=== PATIENT | female | born 1940 | race Caucasian/White ===

== ENCOUNTER 2021-10-09 18:13 | Inpatient (IN) ==
[2021-10-09 19:30] LABS: Basophils % 0.2 %; Eosinophils % 0.2 %; Hemoglobin 12.1 g/dL (11.5-15.4); Immature Granulocytes % 0.2 % (0-4); Lymphocytes # 1.1 K/mcL (0.6-4.6); Lymphocytes % 11.9 %; Mean Corpuscular HGB Conc 33.6 g/dL (31.6-35.5); Mean Corpuscular Hemoglobin 31.8 pg (28.0-33.3); Mean Corpuscular Volume 94.5 fL (83.0-100.0); Mean Platelet Volume 9.8 fL (9.4-12.4); Monocytes % 10.9 %; Neutrophils # 6.8 K/mcL (1.6-8.9); Platelet Count 207 K/mcL (140-400); Red Blood Count 3.81 M/mcL (3.82-4.97); Red Cell Distribution Width 11.9 % (11.5-14.5); Segmented Neutrophils % 76.6 %; White Blood Count 8.9 K/mcL (4.3-11.1)
[2021-10-09 19:37] LABS: INR 1.2
[2021-10-09 19:40] LABS: Activated Partial Thrombo Time 29.1 Seconds (26.0-36.0)
[2021-10-09 19:41] LABS: Bilirubin,Urine Negative (Negative); Blood,Urine Negative (Negative); Clarity,Urine Clear (Clear); Color,Urine Yellow (Yellow); Glucose,Urine (UA) Normal (Normal); Ketones,Urine Trace mg/dL (Negative); Leukocyte Esterase,Urine Negative (Negative); Nitrite,Urine Negative (Negative); PH,Urine 6.5 pH Units (5.0-8.0); Protein,Urine Trace mg/dL (Neg-Trace); Specific Gravity,Urine 1.025 (1.010-1.025); Urobilinogen,Urine Normal (Normal)
[2021-10-09 19:45] LABS: Alanine Aminotransferase 12 Units/L (7-52); Albumin 3.7 g/dL (3.5-5.7); Albumin/Globulin Ratio 1.3 (1.1-2.2); Alkaline Phosphatase 48 Units/L (34-104); Aspartate Amino Transferase 25 Units/L (13-39); BUN/Creatinine Ratio 22 (6-26); Bilirubin,Total 0.5 mg/dL (0.3-1.0); Blood Urea Nitrogen 36 mg/dL (8-23); Calcium 8.2 mg/dL (8.6-10.3); Carbon Dioxide 25 mEq/L (23-29); Chloride 101 mEq/L (98-107); Globulin 2.9 g/dL (2.4-3.5); Glucose 127 mg/dL (70-105); Osmolality,Calculated 292 (280-300); Phosphorous 4.4 mg/dL (2.7-4.5); Potassium 3.4 mEq/L (3.5-5.1); Sodium 136 mEq/L (136-145); Total Protein 6.6 g/dL (6.4-8.9); eGFR For African Americans 37 (> 60); eGFR For Non-African Americans 31 (> 60)
[2021-10-09 19:48] LABS: Troponin I < 0.03 ng/mL (< 0.04)
[2021-10-09] MEDS ORDERED: 0.9 % Sodium Chloride 1,000 ML IV ONE (19:48)
[2021-10-09] MEDS ORDERED: Naloxone 0.4 MG/ML INJ IVP PRN (20:53)
[2021-10-09] MEDS ORDERED: Melatonin 3 MG TABLET PO PRN (20:53)
[2021-10-09] MEDS ORDERED: *HR* HYDROcodone/Acet 5/325 mg TABLET PO PRN (20:53)
[2021-10-09] MEDS ORDERED: Ondansetron 4 MG/2 ML VIAL IVP PRN (20:53)
[2021-10-09] MEDS ORDERED: Acetaminophen 325 MG TABLET PO PRN (20:53)
[2021-10-09] MEDS ORDERED: Benzonatate 100 MG CAPSULE PO PRN (20:55)
[2021-10-09] MEDS ORDERED: Saliva Stimulant 44.3ml BOTTLE PO PRN (20:55)
[2021-10-09] MEDS ORDERED: D5% in Water 1,000 ML IVC PRN (21:10)
[2021-10-09] MEDS ORDERED: *HR* Dextrose 50 % in Water (Syg) 50 ML SYRINGE IVP PRN (21:10)
[2021-10-09] MEDS ORDERED: Dextrose Gel 15 GM/37.5 ML TUBE PO PRN ×2 (21:10)
[2021-10-09] MEDS: Ipratropium 1 PUFF INHALER IH SCH (22:33)
[2021-10-09] MEDS: Chlorhexidine Rinse 15 ML MOUTHWASH MM SCH (22:47)
[2021-10-10] MEDS: *HR* Heparin 5,000 UNIT/ML VIAL SQ SCH ×4 (00:09→21:08)
[2021-10-10] MEDS: Ipratropium 1 PUFF INHALER IH SCH ×4 (04:14→22:57)
[2021-10-10 08:15] LABS: Hematocrit 35.1 % (35.3-44.9); Hemoglobin 12.3 g/dL (11.5-15.4); Immature Granulocytes % 0.3 % (0-4); Lymphocytes # 0.4 K/mcL (0.6-4.6); Lymphocytes % 12.2 %; Mean Corpuscular Hemoglobin 32.2 pg (28.0-33.3); Mean Corpuscular Volume 91.9 fL (83.0-100.0); Monocytes # 0.1 K/mcL (0.0-1.3); Monocytes % 1.5 %; Neutrophils # 2.8 K/mcL (1.6-8.9); Platelet Count 219 K/mcL (140-400); Red Blood Count 3.82 M/mcL (3.82-4.97); Red Cell Distribution Width 11.8 % (11.5-14.5); White Blood Count 3.3 K/mcL (4.3-11.1)
[2021-10-10 08:22] LABS: INR 1.1; Prothrombin Time 12.2 Seconds (9.4-12.1)
[2021-10-10 08:26] LABS: Albumin 3.7 g/dL (3.5-5.7); Albumin/Globulin Ratio 1.3 (1.1-2.2); Bilirubin,Direct 0.1 mg/dL (0.0-0.2); Bilirubin,Indirect 0.3 mg/dL (0.0-1.0); Bilirubin,Total 0.4 mg/dL (0.3-1.0); Globulin 2.9 g/dL (2.4-3.5); Total Protein 6.6 g/dL (6.4-8.9)
[2021-10-10 08:31] LABS: Albumin 3.7 g/dL (3.5-5.7); Albumin/Globulin Ratio 1.3 (1.1-2.2); Bilirubin,Total 0.4 mg/dL (0.3-1.0); Calcium 8.5 mg/dL (8.6-10.3); Globulin 2.9 g/dL (2.4-3.5); Magnesium 2.1 mg/dL (1.6-2.6); Phosphorous 4.7 mg/dL (2.7-4.5); Potassium 3.8 mEq/L (3.5-5.1); Total Protein 6.6 g/dL (6.4-8.9)
[2021-10-10] MEDS ORDERED: Remdesivir 200 MG in 0.9 % Sodium Chloride 100 ML IVPB ONE (09:00)
[2021-10-10] MEDS: Saline Nasal Spray 44 ML BOTTLE NS SCH ×4 (09:46→21:08)
[2021-10-10] MEDS: Multivit/Ca/Min/Fe/FA 1 TAB TABLET PO SCH (09:46)
[2021-10-10] MEDS: Chlorhexidine Rinse 15 ML MOUTHWASH MM SCH ×2 (09:46→21:07)
[2021-10-10] MEDS: Cholecalciferol (D-3) 1,000 UNIT (25MCG) TABLET PO SCH (09:46)
[2021-10-10] MEDS: Artificial Tears SOLN 15 ML BOTTLE BOTH EYES SCH ×4 (09:48→21:08)
[2021-10-10 13:01] LABS: C-Reactive Protein < 5 mg/L (Less than 10); Lactate Dehydrogenase 177 Units/L (140-271)
[2021-10-10 13:15] LABS: Ferritin 328 ng/mL (10-120)
[2021-10-10] MEDS: carvediloL 6.25 MG TABLET PO SCH (18:10)
[2021-10-11] MEDS: Ipratropium 1 PUFF INHALER IH SCH ×4 (04:00→23:03)
[2021-10-11] MEDS: *HR* Heparin 5,000 UNIT/ML VIAL SQ SCH ×3 (06:33→22:11)
[2021-10-11 08:32] LABS: Hematocrit 35.6 % (35.3-44.9); Hemoglobin 12.6 g/dL (11.5-15.4); Mean Corpuscular HGB Conc 35.4 g/dL (31.6-35.5); Mean Corpuscular Hemoglobin 31.9 pg (28.0-33.3); Mean Corpuscular Volume 90.1 fL (83.0-100.0); Mean Platelet Volume 10.4 fL (9.4-12.4); Platelet Count 229 K/mcL (140-400); Red Blood Count 3.95 M/mcL (3.82-4.97); Red Cell Distribution Width 11.6 % (11.5-14.5); White Blood Count 6.4 K/mcL (4.3-11.1)
[2021-10-11] MEDS: Aspirin 81 MG TAB.CHEW PO SCH (08:37)
[2021-10-11] MEDS: Multivit/Ca/Min/Fe/FA 1 TAB TABLET PO SCH (08:37)
[2021-10-11] MEDS: carvediloL 6.25 MG TABLET PO SCH ×2 (08:37→16:53)
[2021-10-11] MEDS: Cholecalciferol (D-3) 1,000 UNIT (25MCG) TABLET PO SCH (08:37)
[2021-10-11] MEDS: Chlorhexidine Rinse 15 ML MOUTHWASH MM SCH ×2 (08:38→22:11)
[2021-10-11] MEDS: Artificial Tears SOLN 15 ML BOTTLE BOTH EYES SCH ×4 (08:39→22:17)
[2021-10-11] MEDS: Saline Nasal Spray 44 ML BOTTLE NS SCH ×4 (08:39→22:18)
[2021-10-11 08:58] LABS: Albumin 3.7 g/dL (3.5-5.7); Albumin/Globulin Ratio 1.3 (1.1-2.2); Bilirubin,Direct 0.1 mg/dL (0.0-0.2); Bilirubin,Indirect 0.2 mg/dL (0.0-1.0); Bilirubin,Total 0.3 mg/dL (0.3-1.0); Calcium 8.8 mg/dL (8.6-10.3); Globulin 2.9 g/dL (2.4-3.5); Potassium 3.6 mEq/L (3.5-5.1); Total Protein 6.6 g/dL (6.4-8.9)
[2021-10-11] MEDS: Remdesivir 100 MG in 0.9 % Sodium Chloride 100 ML IVPB SCH (09:36)
[2021-10-12] MEDS: Ipratropium 1 PUFF INHALER IH SCH ×4 (04:18→23:00)
[2021-10-12] MEDS: *HR* Heparin 5,000 UNIT/ML VIAL SQ SCH ×3 (06:44→20:40)
[2021-10-12 07:53] LABS: Albumin 3.6 g/dL (3.5-5.7); Albumin/Globulin Ratio 1.2 (1.1-2.2); BUN/Creatinine Ratio 35 (6-26); Bilirubin,Direct 0.1 mg/dL (0.0-0.2); Bilirubin,Indirect 0.2 mg/dL (0.0-1.0); Bilirubin,Total 0.3 mg/dL (0.3-1.0); Blood Urea Nitrogen 36 mg/dL (8-23); Carbon Dioxide 17 mEq/L (23-29); Chloride 109 mEq/L (98-107); Globulin 2.9 g/dL (2.4-3.5); Glucose 100 mg/dL (70-105); Osmolality,Calculated 304 (280-300); Potassium 4.1 mEq/L (3.5-5.1); Sodium 143 mEq/L (136-145); Total Protein 6.5 g/dL (6.4-8.9); eGFR For African Americans > 60 (> 60); eGFR For Non-African Americans 51 (> 60)
[2021-10-12] MEDS: Aspirin 81 MG TAB.CHEW PO SCH (09:09)
[2021-10-12] MEDS: Artificial Tears SOLN 15 ML BOTTLE BOTH EYES SCH ×4 (09:09→20:40)
[2021-10-12] MEDS: carvediloL 6.25 MG TABLET PO SCH ×2 (09:10→20:40)
[2021-10-12] MEDS: Multivit/Ca/Min/Fe/FA 1 TAB TABLET PO SCH (09:10)
[2021-10-12] MEDS: Saline Nasal Spray 44 ML BOTTLE NS SCH ×4 (09:10→20:40)
[2021-10-12] MEDS: Cholecalciferol (D-3) 1,000 UNIT (25MCG) TABLET PO SCH (09:10)
[2021-10-12] MEDS: Chlorhexidine Rinse 15 ML MOUTHWASH MM SCH ×2 (09:10→20:40)
[2021-10-12] MEDS: Remdesivir 100 MG in 0.9 % Sodium Chloride 100 ML IVPB SCH (09:11)
[2021-10-12 10:05] LABS: Hemoglobin 12.7 g/dL (11.5-15.4); Mean Corpuscular HGB Conc 34.3 g/dL (31.6-35.5); Mean Corpuscular Hemoglobin 32.1 pg (28.0-33.3); Mean Corpuscular Volume 93.4 fL (83.0-100.0); Mean Platelet Volume 10.8 fL (9.4-12.4); Platelet Count 215 K/mcL (140-400); Red Blood Count 3.96 M/mcL (3.82-4.97); Red Cell Distribution Width 11.9 % (11.5-14.5); White Blood Count 11.2 K/mcL (4.3-11.1)
[2021-10-13] MEDS: *HR* Heparin 5,000 UNIT/ML VIAL SQ SCH (05:27)
[2021-10-13] MEDS: Ipratropium 1 PUFF INHALER IH SCH ×2 (05:32→10:13)
[2021-10-13 06:48] LABS: Albumin 3.2 g/dL (3.5-5.7); Albumin/Globulin Ratio 1.2 (1.1-2.2); Bilirubin,Direct 0.1 mg/dL (0.0-0.2); Bilirubin,Indirect 0.4 mg/dL (0.0-1.0); Bilirubin,Total 0.5 mg/dL (0.3-1.0); Globulin 2.7 g/dL (2.4-3.5); Total Protein 5.9 g/dL (6.4-8.9)
[2021-10-13 07:00] VITALS: BP 141/60; PULSE 67; TEMP 98.9
[2021-10-13] MEDS: Chlorhexidine Rinse 15 ML MOUTHWASH MM SCH (08:58)
[2021-10-13] MEDS: Remdesivir 100 MG in 0.9 % Sodium Chloride 100 ML IVPB SCH (08:58)
[2021-10-13] MEDS: Aspirin 81 MG TAB.CHEW PO SCH (08:59)
[2021-10-13] MEDS: Artificial Tears SOLN 15 ML BOTTLE BOTH EYES SCH ×2 (09:00→11:19)
[2021-10-13] MEDS: Saline Nasal Spray 44 ML BOTTLE NS SCH ×2 (09:00→11:19)
[2021-10-13] MEDS ORDERED: dexAMETHasone 4 MG TABLET PO SCH (09:00)
[2021-10-13] MEDS: Cholecalciferol (D-3) 1,000 UNIT (25MCG) TABLET PO SCH (09:00)
[2021-10-13] MEDS: Multivit/Ca/Min/Fe/FA 1 TAB TABLET PO SCH (09:00)
[2021-10-13] MEDS: carvediloL 6.25 MG TABLET PO SCH (09:00)
[2021-10-13 12:11] VITALS: RESP 14; O2SAT 96
== END 2021-10-13 14:05 | disposition home health service (06) | DRG 177 ==
LOC: EMEROOPIK 18:13 → INPPIK 18:13
PROVIDERS: ADMIT Internal Medicine; ATTEND Internal Medicine